=== PATIENT | male | born 1975 | race Caucasian/White ===

== ENCOUNTER 2021-06-23 15:48 | Emergency (ER) | payer OTHER ==
[~2021-06-23] VITALS: Ht 167.6 cm; Wt 67.6 kg
[2021-06-23] MEDS ORDERED: COUMARIN1 GM PO (16:08)
== END 2021-06-23 17:44 | disposition home or self-care (01) ==
LOC: ER 15:48
DX: K64.1 Second degree hemorrhoids (principal)